=== PATIENT | male | born 1990 | race Caucasian/White ===

== ENCOUNTER 2018-04-14 18:57 | Emergency (ER) | payer BC, OTHER ==
[2018-04-14] MEDS: ONDANSETRON (ODT) 4 MG TAB ODT (20:36)
[2018-04-14] MEDS: HYDROCODONE/APAP (5/325) TAB PO (20:37)
== END 2018-04-14 21:45 | disposition home or self-care (01) ==
LOC: FTE 18:57
DX: S93.401A Sprain of unspecified ligament of right ankle, initial encounter (principal); F17.210 Nicotine dependence, cigarettes, uncomplicated; W00.0XXA Fall on same level due to ice and snow, initial encounter; Y92.9 Unspecified place or not applicable
CPT/HCPCS: 73610; 73610-RT; 99283